=== PATIENT | male | born 1965 | race Caucasian/White ===

== ENCOUNTER 2017-03-22 22:59 | Emergency (ER) | payer MEDICAID ==
[~2017-03-22 22:59] MED LIST: ALBU0.086 INH; ASPI325T PO; CEFU1TAB43 PO; COUM6TAB PO; DIAZ10TA PO; DILA8TAB4 PO; LISI-363 PO; METH5SOL3 PO; MOTR200T PO; NEBUKIT4 XX
[2017-03-22 23:24] VITALS: BP 163/82; PULSE 99; RESP 17; TEMP 97.7; O2SAT 97
[2017-03-22] MEDS ORDERED: SODIUM CHLORIDE 0.9% FLUSH 10 ML FLUSH IVF PRN (23:30)
--- NOTE | 2017-03-22 23:54 | RADRPT ---
EXAM DATE/TIME: 03/22/2017 23:40 [place] COMPARISON: CT BRAIN W/O CONTRAST, November 09, 2013, 11:09. INDICATIONS : Contusion; altered mental status. RADIATION DOSE: 44.08 CTDIvol (mGy) MEDICAL HISTORY : Hypertension. Cardiovascular disease Myocardial infarction.Coronary artery disease. SURGICAL HISTORY : Cardiac catherization. ENCOUNTER: Initial ACUITY: 1 day PAIN SCALE: 6/10 LOCATION: cranial TECHNIQUE: Multiple contiguous axial images were obtained of the head. Using automated exposure control and adj ustment of the mA and/or kV according to patient size, radiation dose was kept as low as reasonably a chievable to obtain optimal diagnostic quality images. FINDINGS: CEREBRUM: The ventricles are normal for age. No evidence of midline shift, mass lesion, hemorrhage or acute in farction. No extra-axial fluid collections are seen. POSTERIOR FOSSA: The cerebellum and brainstem are intact. The 4th ventricle is midline. The cerebellopontine angle i s unremarkable. EXTRACRANIAL: The visualized portion of the orbits is intact. SKULL: The calvaria is intact. No evidence of skull fracture. CONCLUSION: Normal examination. Gustabo Parker MD on March 22, 2017 at 23:53 Board Certified Radiologist. This report was verified electronically.
--- NOTE | 2017-03-22 23:55 | PD ---
HPI Chief Complaint: Psychiatric Symptoms Time Seen by Provider: 23:20 Travel History International Travel<30 days: No Contact w/Intl Traveler<30days: No Traveled to known affect area: No History of Present Illness HPI Patient is a 51-year-old male presenting to the emergency Department under Dominguez act due to visual and auditory hallucinations. Patient states that he called the police to his home this evening because he was in the text message from someone living in his attic that if he removed a power cord again that they would get him. Patient reports for the last 3 weeks that he's been hearing things and seeing things that her real to him. He denies any suicidal or homicidal ideations. He does report feeling dizzy at times and has a dull headache. He admits to smoking tobacco on a daily basis, he reports using crystal meth a few weeks ago. Patient states that he fell today suffering an abrasion to his nose after he tripped over his dog. He denies any loss of consciousness. Patient states that he takes 8 mg of Dilaudid 4 times daily as well as Valium due to chronic back pain and anxiety. He denies any physical complaints at this time. PFSH Past Medical History Autoimmune Disease: No Blood Disorders: Yes (PE, DVT) Anxiety: Yes Heart Rhythm Problems: No Cancer: No Cardiac Catheterization: Yes High Cholesterol: Yes Chest Pain: Yes Congestive Heart Failure: No Cerebrovascular Accident: Yes (intracranial hemorrhage) Coronary Artery Disease: Yes Diabetes: Yes (2) Diminished Hearing: No Endocrine: No Genitourinary: No Hypertension: Yes Musculoskeletal: Yes (chronic back pain) Neurologic: Yes (TIA) Psychiatric: No Respiratory: No Migraines: Yes Myocardial Infarction: Yes (X 2) Seizures: No Past Surgical History AICD: No Arteriovenous Shunt: No Coronary Artery Bypass Graft: Yes Coronary Stent: Yes (X 2) Insulin Pump: No Joint Replacement: No Pacemaker: No Other Surgery: Yes (right carotid endarterectomy) Social History Alcohol Use: No Tobacco Use: Yes (1 PPD) Substance Use: Yes (methamphetamines) Allergies-Medications (Allergen,Severity, Reaction): Coded Allergies: *MDRO Multi-Drug Resistant Organism (Verified Allergy, Unknown, 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 Reported Meds & Prescriptions Reported Meds & Active Scripts Active Reported Morphine ER (Morphine Sulfate) 30 Mg Tab 30 Mg PO Q8H Dilaudid (Hydromorphone HCl) 8 Mg Tab 8 Mg PO Q6H PRN Potassium Chloride ER (Potassium Chloride) 10 Meq Cap 10 Meq PO DAILY Metoprolol Tartrate 25 Mg Tab 25 Mg PO BID Flexeril (Cyclobenzaprine HCl) 10 Mg Tab 10 Mg PO BID Lasix (Furosemide) 40 Mg Tab 40 Mg PO DAILY Valium (Diazepam) 10 Mg Tab 10 Mg PO BID Review of Systems Except as stated in HPI: all other systems reviewed are Neg HENT: Positive: Headaches Cardiovascular: No: Chest Pain or Discomfort Respiratory: No: Shortness of Breath Gastrointestinal: No: Abdominal Pain Skin: Positive Other (abrasion to nose) Neurologic: Positive: Dizziness Psychiatric: Positive: Substance Abuse, Other (visual and auditory hallucinations) Physical Exam Narrative GENERAL: Well-developed, well-nourished, alert male. Resting comfortably in no acute distress. SKIN: Focused skin assessment warm/dry. Abrasion to nose, scabbed lesions on arms and legs. No erythema or induration noted. HEAD: Atraumatic. Normocephalic. EYES: Pupils equal and round. No scleral icterus. No injection or drainage. ENT: No nasal bleeding or discharge. Mucous membranes pink and moist. NECK: Trachea midline. No JVD. CARDIOVASCULAR: Regular rate and rhythm. No murmur appreciated. RESPIRATORY: No accessory muscle use. Clear to auscultation. Breath sounds equal bilaterally. GASTROINTESTINAL: Abdomen soft, non-tender, nondistended. Hepatic and splenic margins not palpable. MUSCULOSKELETAL: No obvious deformities. No clubbing. No cyanosis. No edema. NEUROLOGICAL: Awake and alert. No obvious cranial nerve deficits. Motor grossly within normal limits. Normal speech. PSYCHIATRIC: Appropriate mood and affect; insight and judgment impaired. Data Data Last Documented VS Vital Signs Date Time Temp Pulse Resp B/P Pulse Ox O2 Delivery O2 Flow Rate FiO2 03/22/17 23:24 97.7 99 17 163/82 97 Orders Complete Blood Count With Diff (03/22/17 23:22) Comprehensive Metabolic Panel (03/22/17 23:22) Urinalysis - C+S If Indicated (03/22/17 23:22) Iv Access Insert/Monitor (03/22/17 23:22) Ecg Monitoring (03/22/17 23:22) Psych Screen (03/22/17 23:22) Sodium Chloride 0.9% Flush (Ns Flush) (03/22/17 23:30) Drug Screen, Random Urine (03/22/17 23:22) Alcohol (Ethanol) (03/22/17 23:22) Salicylates (Aspirin) (03/22/17 23:22) Tylenol (Acetaminophen) (03/22/17 23:22) Ct Brain W/O Iv Contrast(Rout) (03/22/17 ) Potassium Chloride (Kcl) (03/23/17 00:30) Labs Laboratory Tests Test 03/22/17 03/22/17 23:35 23:55 White Blood Count 9.5 TH/MM3 Red Blood Count 4.44 MIL/MM3 Hemoglobin 13.0 GM/DL Hematocrit 37.8 % Mean Corpuscular Volume 85.3 FL Mean Corpuscular Hemoglobin 29.3 PG Mean Corpuscular Hemoglobin 34.3 % Concent Red Cell Distribution Width 13.8 % Platelet Count 355 TH/MM3 Mean Platelet Volume 7.6 FL Neutrophils (%) (Auto) 62.0 % Lymphocytes (%) (Auto) 28.4 % Monocytes (%) (Auto) 6.4 % Eosinophils (%) (Auto) 2.2 % Basophils (%) (Auto) 1.0 % Neutrophils # (Auto) 5.9 TH/MM3 Lymphocytes # (Auto) 2.7 TH/MM3 Monocytes # (Auto) 0.6 TH/MM3 Eosinophils # (Auto) 0.2 TH/MM3 Basophils # (Auto) 0.1 TH/MM3 CBC Comment DIFF FINAL Differential Comment Sodium Level 141 MEQ/L Potassium Level 3.2 MEQ/L Chloride Level 108 MEQ/L Carbon Dioxide Level 26.2 MEQ/L Anion Gap 7 MEQ/L Blood Urea Nitrogen 13 MG/DL Creatinine 0.97 MG/DL Estimat Glomerular Filtration 81 ML/MIN Rate Random Glucose 142 MG/DL Calcium Level 9.5 MG/DL Total Bilirubin 0.6 MG/DL Aspartate Amino Transf 23 U/L (AST/SGOT) Alanine Aminotransferase 32 U/L (ALT/SGPT) Alkaline Phosphatase 104 U/L Total Protein 8.2 GM/DL Albumin 4.0 GM/DL Salicylates Level 2.1 MG/DL Acetaminophen Level LESS THAN 2.0 MCG/ML Ethyl Alcohol Level LESS THAN 3 MG/DL Urine Color YELLOW Urine Turbidity CLEAR Urine pH 5.5 Urine Specific [place] 1.030 Urine Protein 30 mg/dL Urine Glucose (UA) 300 mg/dL Urine Ketones NEG mg/dL Urine Occult Blood NEG Urine Nitrite NEG Urine Bilirubin NEG Urine Urobilinogen LESS THAN 2.0 MG/DL Urine Leukocyte Esterase NEG Urine WBC 0-2 /hpf Urine Squamous Epithelial 0-5 /hpf Cells Urine Hyaline Casts 0-2 /lpf Urine Mucus MOD /lpf Urine Sperm OCC Microscopic Urinalysis Comment CULT NOT INDICATED Urine Opiates Screen POS Urine Barbiturates Screen NEG Urine Amphetamines Screen POS Urine Benzodiazepines Screen POS Urine Cocaine Screen NEG Urine Cannabinoids Screen NEG MDM Medical Decision Making Medical Screen Exam Complete: Yes Emergency Medical Condition: Yes Interpretation(s) Vital Signs Date Time Temp Pulse Resp B/P Pulse Ox O2 Delivery O2 Flow Rate FiO2 03/22/17 23:24 97.7 99 17 163/82 97 Differential Diagnosis Mood disorder versus substance abuse versus CVA versus UTI versus electrolyte abnormality versus medication side effects versus other Narrative Course Patient's 51-year-old male presenting to the emergency Department under Dominguez act for hallucinations. Patient's vital signs are stable, he is alert and oriented, pleasant and cooperative. CT scan ordered due to patient's fall today. Labs and psych screening ordered and pending. CT scan of the brain is negative for acute abnormality CBC is unremarkable Chemistry with potassium at 3.2 otherwise unremarkable. KCl 30 mEq by mouth 1 dose ordered. Salicylate level is 2.1, acetaminophen level is less than 2.0, alcohol level is less than 3. Rate is positive for opiates, amphetamines, benzodiazepines. Urinalysis is not indicative of urinary tract infection. Patient is complaining of a headache. He will be given acetaminophen. Patient is medically cleared at this time for psychiatric evaluation. Diagnosis Primary Impression: Medical clearance for psychiatric admission Additional Impression: Substance abuse Condition: Stable Eil Steiner Mar 22, 2017 23:55
[2017-03-22 23:57] LABS: AUTOMATED NEUTROPHIL # 5.9 TH/MM3 (1.8-7.7); BASOPHIL # 0.1 TH/MM3 (0-0.2); EOSINOPHIL # 0.2 TH/MM3 (0-0.4); EOSINOPHIL % 2.2 % (0.0-4.0); HEMATOCRIT 37.8 % (39.0-51.0); HEMO FLAGS DIFF FINAL; LYMPH % 28.4 % (9.0-44.0); LYMPHOCYTE # 2.7 TH/MM3 (1.0-4.8); MEAN CELL VOLUME 85.3 FL (80.0-100.0); MEAN CORPUSCULAR HEMOGLOBIN 29.3 PG (27.0-34.0); MEAN CORPUSCULAR HGB CONC 34.3 % (32.0-36.0); MONO % 6.4 % (0.0-8.0); PLATELET COUNT 355 TH/MM3 (150-450); RED BLOOD COUNT 4.44 MIL/MM3 (4.50-5.90); RED CELL DISTRIBUTION WIDTH 13.8 % (11.6-17.2); WHITE BLOOD COUNT 9.5 TH/MM3 (4.0-11.0)
[2017-03-23 00:02] LABS: ALT (GPT) 32 U/L (12-78); ANION GAP 7 MEQ/L (5-15); AST (GOT) 23 U/L (15-37); BICARBONATE 26.2 MEQ/L (21.0-32.0); BLOOD UREA NITROGEN 13 MG/DL (7-18); CHLORIDE 108 MEQ/L (98-107); GLOMERULAR FILTRATION RATE 81 ML/MIN (>89); POTASSIUM 3.2 MEQ/L (3.5-5.1); SODIUM (NA) 141 MEQ/L (136-145)
[2017-03-23 00:05] LABS: ALKALINE PHOSPHATASE 104 U/L (45-117); TOTAL BILIRUBIN ADULT 0.6 MG/DL (0.2-1.0)
[2017-03-23 00:10] LABS: ACETAMINOPHEN LESS THAN 2.0 MCG/ML (10.0-30.0)
[2017-03-23] MEDS ORDERED: POTA10CA PO (00:16)
[2017-03-23] MEDS ORDERED: DILA8TAB4 PO (00:16)
[2017-03-23] MEDS ORDERED: FURO1TAB60 PO (00:16)
[2017-03-23] MEDS ORDERED: METO25TA3 PO (00:16)
[2017-03-23] MEDS ORDERED: DIAZ10 PO (00:16)
[2017-03-23] MEDS ORDERED: CYCL1TAB29 PO (00:16)
[2017-03-23] MEDS ORDERED: MORP1TAB25 PO (00:16)
[2017-03-23 00:19] LABS: BLOOD, URINE NEG (NEG); GLUCOSE,URINE 300 mg/dL (NEG); KETONE, URINE NEG (NEG); NITRITE,URINE NEG (NEG); PH, URINE 5.5 (5.0-8.5); URINE COLOR YELLOW (YELLW/STRAW)
[2017-03-23 00:24] LABS: AMPHETAMINE, URINE POS (NEG); BARBITURATES, URINE NEG (NEG); COCAINE, URINE NEG (NEG); COMMENT (UR) CULT NOT INDICATED; CULTURE IF INDICATED CULT NOT INDICATED; MUCUS URINE MOD /lpf (OCC); SQUAMOUS EPITHELIAL CELL URINE 0-5 /hpf (0-5); WBC, URINE 0-2 /hpf (0-5)
[2017-03-23 00:25] LABS: HYALINE CAST, URINE 0-2 /lpf (RARE)
[2017-03-23] MEDS ORDERED: POTASSIUM CHLORIDE 10 MEQ CONTROLLED RELEASE TAB PO ONE (00:30)
[2017-03-23] MEDS ORDERED: IBUPROFEN 800 MG TAB PO ONE (05:00)
[2017-03-23] MEDS ORDERED: CYCLOBENZAPRINE HCL 10 MG TAB PO ONE (05:00)
[2017-03-23 07:31] VITALS: BP 116/70; PULSE 63; RESP 16; TEMP 97.6; O2SAT 97
[2017-03-23 16:00] VITALS: BP 140/82; PULSE 73; RESP 18; TEMP 97.5; O2SAT 99
== END 2017-03-23 17:06 ==
LOC: NEPD 22:59 → NEPJ 03-23 17:06
DX: F19.10 Other psychoactive substance abuse, uncomplicated (principal); R51 Headache; R42 Dizziness and giddiness; R41.82 Altered mental status, unspecified; S00.31XA Abrasion of nose, initial encounter; E78.00 Pure hypercholesterolemia, unspecified; Z95.1 Presence of aortocoronary bypass graft; E11.9 Type 2 diabetes mellitus without complications; I10 Essential (primary) hypertension; G89.29 Other chronic pain; I25.2 Old myocardial infarction; Z86.73 Personal history of transient ischemic attack (TIA), and cerebral infarction without residual deficits; F17.210 Nicotine dependence, cigarettes, uncomplicated; Z86.711 Personal history of pulmonary embolism; Z86.718 Personal history of other venous thrombosis and embolism; W01.0XXA Fall on same level from slipping, tripping and stumbling without subsequent striking against object, initial encounter; Y93.9 Activity, unspecified; Y92.9 Unspecified place or not applicable
CPT/HCPCS: 70450; 80053; 80307; 81001; 85025; 99284